=== PATIENT | female | born 1985 | race Caucasian/White ===

== ENCOUNTER 2016-03-06 09:46 | Emergency (ER) | payer OTHER ==
[~2016-03-06 09:46] MED LIST: ACET160S5 PO; COLA100C PO; IBUP800T23 PO; MOM30SS PO; OXYC1TAB23 PO; PRENTAB55 PO
--- NOTE | 2016-03-06 10:31 | EDDOCDS ---
Physician Documentation [facility] Name: Gisela Mansfield Age: 31 yrs Sex: Female : 1985 Arrival Date: 03/06/2016 Time: 09:46 Bed I7 / 29 Private MD: César Bourne FPA Disposition: 03/06/16 10:18 Discharged to Home/Self Care. Impression: Puncture wound without foreign body of left index finger without damage to nail, Contact with and (suspected) exposure to potentially hazardous body fluids. - Condition is Stable. - Discharge Instructions: Body Fluid Exposure Information. - Medication Reconciliation form. - Follow up: Employee Health Office, .; When: 1 week; Reason: Recheck today's complaints, Continuance of care. - Problem is new. - Symptoms are unchanged. Historical: - Allergies: no known allergies; - Home Meds: 1. none - PMHx: Anxiety; - PSHx: ; - Social history: Smoking status: Patient states former smoker of tobacco. No barriers to communication noted, The patient speaks fluent Luxembourger, Speaks appropriately for age. - Family history: Not pertinent. - : The pt / caregiver states he / she is not on anticoagulants. Home medication list is obtained from the patient. - Exposure Risk Screening:: None identified. 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 7 in. (170.18 cm); Pain 0/10; 09:48 Body Mass Index 20.36 (58.97 kg, 170.18 cm) cmb MDM: 10:04 Financial registration complete. lg 10:08 Consult [employer] (-F, 7:30a-4p) or Nursing [employer] Principal for source patient cc10 testing ordered. 10:08 Place PEP packet on chart ordered. cc10 10:09 CBC with Diff Ordered. EDMS 10:09 Complete Comphrensive Metabolic Ordered. EDMS 10:09 HIV EXPOSED(ONLY WITH PEP SET) Ordered. EDMS 10:09 Hepatitis B Surface Antibody Ordered. EDMS 10:09 Hepatitis B Surface Antigen Ordered. EDMS 10:26 Consult Employee Health (M-F, 7:30a-4p) or Nursing [employer] for source patient srm testing complete. Signatures: Dispatcher [employer] EDSo Han, RN RN srm Aleja Montgomery Reg Reg lg Barney, Michael B RN RN mlb1 Kalia Varghese, JEANNETTE PAGregorio cc10 The chart was reviewed and I authenticate all verbal orders and agree with the evaluation and treatment provided.Corrections: (The following items were deleted from the chart) 10:28 10:09 HEPATITIS C ANTIBODY+LAB ordered. EDMS EDMS MTDD
--- NOTE | 2016-03-06 10:31 | EDDOCDS ---
Nurse's Notes [facility] Name: Gisela Mansfield Age: 31 yrs Sex: Female : 1985 Arrival Date: 03/06/2016 Time: 09:46 Bed I7 / 29 Private MD: César Bourne FPA Diagnosis: Puncture wound without foreign body of left index finger without damage to nail;Contact with and (suspected) exposure to potentially hazardous body fluids Presentation: 03/06 09:50 Presenting complaint: Patient states: Puncture wound with a towel clip in the OR. Adult mlb1 Sepsis Screening: The patient does not have new or worsening altered mentation. Patient's respiratory rate is less than 22. Systolic blood pressure is greater than 100. Patient has a qSOFA score of 0- Negative Sepsis Screen. Suicide/Homicide risk assessment- the patient denies having any suicidal and/or homicidal ideations and does not present with any other emotional, behavioral or mental health complaints. Status: Patient is not a service vehicle operator or dependent. Transition of care: patient was not received from another setting of care. 09:50 Acuity: MIGUEL Level 4 mlb1 09:50 Method Of Arrival: Walkin/Carried/Asstd mlb1 Triage Assessment: 09:52 General: Appears in no apparent distress, comfortable, Behavior is appropriate for age, mlb1 cooperative. Pain: Denies pain. Pt Declines HIV testing. 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 none - PMHx: Anxiety; - PSHx: ; - Social history: Smoking status: Patient states former smoker of tobacco. No barriers to communication noted, The patient speaks fluent Macedonian, Speaks appropriately for age. - Family history: Not pertinent. - : The pt / caregiver states he / she is not on anticoagulants. Home medication list is obtained from the patient. - Exposure Risk Screening:: None identified. Screenin:26 Screening information is obtained from the patient. Fall risk: No risks identified. srm Assistance ADL's: requires no assistance with activities of daily living. Abuse/DV Screen: The patient / caregiver reports he/she is: not in a situation that causes fear, pain or injury. Nutritional screening: No deficits noted. Advance Directives: There is no active DNR order. home support is adequate. Assessment: 10:26 General: Appears in no apparent distress, Behavior is appropriate for age, cooperative. srm Neurological: No deficits noted. EENT: No deficits noted. Respiratory: No deficits noted. GI: No deficits noted. Derm: Reports poked in left index finger by a towel clip. Employee health called and notified that she is Neg Hep B from last year and they have name and SOB of source pt but no other information. PA aware. Injury: 10:29 Injury Description: Needlestick Type of exposure: Surgical instrument. Site: left index.srm Vital Signs: 09:48 BP 121 / 71; Pulse 98; Resp 16; Temp 97.8(O); Pulse Ox 97% ; Weight 58.97 kg; Height 5 cmb ft. 7 in. (170.18 cm); Pain 0/10; 09:48 Body Mass Index 20.36 (58.97 kg, 170.18 cm) cmb Vitals: 09:48 Log In Time: March 06, 2016 at 09:46. cmb ED Course: 09:47 Patient visited by Julia Cody. cmb 09:47 Patient moved to Waiting cmb 09:48 César Bourne is Private Physician. cmb 09:49 Patient moved to Pre RCE cmb 09:50 Patient visited by César Kelly, RN. mlb1 09:50 Patient moved to Triage 3 mlb1 09:51 Triage Initiated mlb1 09:53 Patient visited by César Kelly, RN. mlb1 10:01 Kalia Varghese PA-C is PHCP. cc10 10:01 Kip Pablo MD is Attending Physician. cc10 10:01 Patient visited by Kalia Varghese PA-C. cc10 10:01 Patient visited by Kalia Varghese PA-C. cc10 10:15 Patient moved to dy 10:18 Employee [facility] Office, . is Referral Physician. cc10 10:26 The patient / caregiver is instructed regarding the plan of care and ED course. Patient srm has correct armband on for positive identification. 10:26 CBC with Diff Sent. srm 10:26 Complete Comphrensive Metabolic Sent. srm 10:26 HIV EXPOSED(ONLY WITH PEP SET) Sent. srm 10:26 Hepatitis B Surface Antibody Sent. srm 10:26 Hepatitis B Surface Antigen Sent. srm 10:26 No IV's were initiated during this patient's visit. No procedures done that require srm assistance. Order Results: There are currently no results for this order. Outcome: 10:18 Discharge ordered by Provider. cc10 10:26 Discharge Assessment: patient administered narcotics - no. The following High Risk srm Discharge criteria are identified: None. Discharged to home ambulatory. The following High Risk Discharge criteria are identified: Discharged to pt states was going to employee health after leaving ED. Condition: good Condition: stable. Discharge instructions given to patient, Instructed on discharge instructions, follow up and referral plans. Demonstrated understanding of instructions, Pt was receptive of discharge instructions/ teaching. No special radiology studies were completed. Property sent home with patient. 10:30 Patient left the ED. srm Signatures: So Lepe, RN RN Walter Lowery, RN RN César Jefferson RN RN mlJulia Leos Colin, PA-C PA-C cc10 Corrections: (The following items were deleted from the chart) 10:28 10:26 HEPATITIS C ANTIBODY+LAB sent. srm EDMS MTDD
[2016-03-06 10:39] LABS: BASO % 0.6 % (0.0-1.0); EOS # 0.2 K/mm3 (0.0-0.50); EOS % 2.5 % (0.0-3.0); LARGE UNSTAINED CELL # 0.2 K/mm3 (0.0-0.4); LYMPH # 2.1 K/mm3 (1.5-4.5); LYMPH % 33.6 % (24.0-44.0); MEAN CORPUSCULAR HGB CONC 32.8 g/dl (32.0-36.5); MEAN CORPUSCULAR VOLUME 85.3 fl (80.0-96.0); MONO # 0.3 K/mm3 (0.0-0.8); MONO % 5.3 % (0.0-5.0); NEUTROPHILS # 3.4 K/mm3 (1.8-7.7); PLATELET COUNT, AUTOMATED 351 k/mm3 (150-450); RED CELL DISTRIBUTION WIDTH 13.7 % (11.5-14.5); WHITE BLOOD COUNT 6.2 K/mm3 (4.0-10.0)
[2016-03-06 11:04] LABS: ALBUMIN 3.9 GM/DL (3.2-5.2); ALBUMIN/GLOBULIN RATIO 1.05 (1.00-1.93); ALKALINE PHOSPHATASE 40 U/L (45-117); ALT/SGPT 21 U/L (12-78); ANION GAP 7 MEQ/L (8-16); AST/SGOT 14 U/L (15-37); BILIRUBIN,TOTAL 0.5 MG/DL (0.2-1.0); BLOOD UREA NITROGEN 14 MG/DL (7-18); CALCIUM LEVEL 8.6 MG/DL (8.5-10.1); CARBON DIOXIDE LEVEL 27 MEQ/L (21-32); CHLORIDE LEVEL 106 MEQ/L (98-107); GLOMERULAR FILTRATION RATE > 60.0 (>60); GLUCOSE, FASTING 101 MG/DL (70-105); POTASSIUM SERUM 4.2 MEQ/L (3.5-5.1); SODIUM LEVEL 140 MEQ/L (136-145); TOTAL PROTEIN 7.6 GM/DL (6.4-8.2)
[2016-03-06 11:09] LABS: CONTROL LINE INT CTR LINE PRESENT
[2016-03-06 11:23] LABS: HEPATITIS B SURFACE ANTIBODY NEGATIVE (POSITIVE)
--- NOTE | 2016-03-08 11:31 | EDDOCDS ---
Nurse's Notes [facility] Name: Gisela Mansfield Age: 31 yrs Sex: Female : 1985 Arrival Date: 03/06/2016 Time: 09:46 Bed I7 / 29 Private MD: César Bourne FPA Diagnosis: Puncture wound without foreign body of left index finger without damage to nail;Contact with and (suspected) exposure to potentially hazardous body fluids Presentation: 03/06 09:50 Presenting complaint: Patient states: Puncture wound with a towel clip in the OR. Adult mlb1 Sepsis Screening: The patient does not have new or worsening altered mentation. Patient's respiratory rate is less than 22. Systolic blood pressure is greater than 100. Patient has a qSOFA score of 0- Negative Sepsis Screen. Suicide/Homicide risk assessment- the patient denies having any suicidal and/or homicidal ideations and does not present with any other emotional, behavioral or mental health complaints. Status: Patient is not a social worker health services or dependent. Transition of care: patient was not received from another setting of care. 09:50 Acuity: MIGUEL Level 4 mlb1 09:50 Method Of Arrival: Walkin/Carried/Asstd mlb1 Triage Assessment: 09:52 General: Appears in no apparent distress, comfortable, Behavior is appropriate for age, mlb1 cooperative. Pain: Denies pain. Pt Declines HIV testing. 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 none - PMHx: Anxiety; - PSHx: ; - Social history: Smoking status: Patient states former smoker of tobacco. No barriers to communication noted, The patient speaks fluent Lithuanian, Speaks appropriately for age. - Family history: Not pertinent. - : The pt / caregiver states he / she is not on anticoagulants. Home medication list is obtained from the patient. - Exposure Risk Screening:: None identified. Screenin:26 Screening information is obtained from the patient. Fall risk: No risks identified. srm Assistance ADL's: requires no assistance with activities of daily living. Abuse/DV Screen: The patient / caregiver reports he/she is: not in a situation that causes fear, pain or injury. Nutritional screening: No deficits noted. Advance Directives: There is no active DNR order. home support is adequate. Assessment: 10:26 General: Appears in no apparent distress, Behavior is appropriate for age, cooperative. srm Neurological: No deficits noted. EENT: No deficits noted. Respiratory: No deficits noted. GI: No deficits noted. Derm: Reports poked in left index finger by a towel clip. Employee health called and notified that she is Neg Hep B from last year and they have name and SOB of source pt but no other information. PA aware. Injury: 10:29 Injury Description: Needlestick Type of exposure: Surgical instrument. Site: left index.srm Vital Signs: 09:48 BP 121 / 71; Pulse 98; Resp 16; Temp 97.8(O); Pulse Ox 97% ; Weight 58.97 kg; Height 5 cmb ft. 7 in. (170.18 cm); Pain 0/10; 09:48 Body Mass Index 20.36 (58.97 kg, 170.18 cm) cmb Vitals: 09:48 Log In Time: March 06, 2016 at 09:46. cmb ED Course: 09:47 Patient visited by Julia Cody. cmb 09:47 Patient moved to Waiting cmb 09:48 César Bourne is Private Physician. cmb 09:49 Patient moved to Pre RCE cmb 09:50 Patient visited by César Kelly, RN. mlb1 09:50 Patient moved to Triage 3 mlb1 09:51 Triage Initiated mlb1 09:53 Patient visited by César Kelly, RN. mlb1 10:01 Kalia Varghese PA-C is PHCP. cc10 10:01 Kip Pablo MD is Attending Physician. cc10 10:01 Patient visited by Kalia Varghese PA-C. cc10 10:01 Patient visited by Kalia Varghese PA-C. cc10 10:15 Patient moved to dy 10:18 Employee [facility] Office, . is Referral Physician. cc10 10:26 The patient / caregiver is instructed regarding the plan of care and ED course. Patient srm has correct armband on for positive identification. 10:26 CBC with Diff Sent. srm 10:26 Complete Comphrensive Metabolic Sent. srm 10:26 HIV EXPOSED(ONLY WITH PEP SET) Sent. srm 10:26 Hepatitis B Surface Antibody Sent. srm 10:26 Hepatitis B Surface Antigen Sent. srm 10:26 No IV's were initiated during this patient's visit. No procedures done that require srm assistance. 10:34 [facility] Payment Agreement was scanned into [employer] and attached to record. lg 13:50 T-Sheet-- Draft Copy was scanned into [employer] and attached to record. gb 13:50 Other: PEP was scanned into [employer] and attached to record. gb Order Results: Lab Order: CBC with Diff; SPEC'M 03/06/16 10:23 Test: WHITE BLOOD COUNT; Value: 6.2; Range: 4.0-10.0; Units: K/mm3; Status: F Test: RED BLOOD COUNT; Value: 4.68; Range: 4.00-5.40; Units: M/mm3; Status: F Test: HEMOGLOBIN; Value: 13.1; Range: 12.0-16.0; Units: g/dl; Status: F Test: HEMATOCRIT; Value: 39.9; Range: 36.0-47.0; Units: %; Status: F Test: MEAN CORPUSCULAR VOLUME; Value: 85.3; Range: 80.0-96.0; Units: fl; Status: F Test: MEAN CORPUSCULAR HEMOGLOBIN; Value: 28.0; Range: 27.0-33.0; Units: pg; Status: F Test: MEAN CORPUSCULAR HGB CONC; Value: 32.8; Range: 32.0-36.5; Units: g/dl; Status: F Test: RED CELL DISTRIBUTION WIDTH; Value: 13.7; Range: 11.5-14.5; Units: %; Status: F Test: PLATELET COUNT, AUTOMATED; Value: 351; Range: 150-450; Units: k/mm3; Status: F Test: NEUTROPHILS %; Value: 55.0; Range: 36.0-66.0; Units: %; Status: F Test: LYMPH %; Value: 33.6; Range: 24.0-44.0; Units: %; Status: F Test: MONO %; Value: 5.3; Range: 0.0-5.0; Abnormal: Above high normal; Units: %; Status: F Test: EOS %; Value: 2.5; Range: 0.0-3.0; Units: %; Status: F Test: BASO %; Value: 0.6; Range: 0.0-1.0; Units: %; Status: F Test: LARGE UNSTAINED CELL %; Value: 3.0; Range: 0.0-4.0; Units: %; Status: F Test: NEUTROPHILS #; Value: 3.4; Range: 1.8-7.7; Units: K/mm3; Status: F Test: LYMPH #; Value: 2.1; Range: 1.5-4.5; Units: K/mm3; Status: F Test: MONO #; Value: 0.3; Range: 0.0-0.8; Units: K/mm3; Status: F Test: EOS #; Value: 0.2; Range: 0.0-0.50; Units: K/mm3; Status: F Test: BASO #; Value: 0.0; Range: 0.0-0.2; Units: K/mm3; Status: F Test: LARGE UNSTAINED CELL #; Value: 0.2; Range: 0.0-0.4; Units: K/mm3; Status: F Lab Order: Complete Comphrensive Metabolic; SPEC'M 03/06/16 10:23 Test: GLUCOSE, FASTING; Value: 101; Range: 70-105; Units: MG/DL; Status: F Test: BLOOD UREA NITROGEN; Value: 14; Range: 7-18; Units: MG/DL; Status: F Test: CREATININE FOR GFR; Value: 1.00; Range: 0.55-1.02; Units: MG/DL; Status: F Test: GLOMERULAR FILTRATION RATE; Value: > 60.0; Range: >60; Status: F Test: SODIUM LEVEL; Value: 140; Range: 136-145; Units: MEQ/L; Status: F Test: POTASSIUM SERUM; Value: 4.2; Range: 3.5-5.1; Units: MEQ/L; Status: F Test: CHLORIDE LEVEL; Value: 106; Range: 98-107; Units: MEQ/L; Status: F Test: CARBON DIOXIDE LEVEL; Value: 27; Range: 21-32; Units: MEQ/L; Status: F Test: ANION GAP; Value: 7; Range: 8-16; Abnormal: Below low normal; Units: MEQ/L; Status: F Test: CALCIUM LEVEL; Value: 8.6; Range: 8.5-10.1; Units: MG/DL; Status: F Test: AST/SGOT; Value: 14; Range: 15-37; Abnormal: Below low normal; Units: U/L; Status: F Test: ALT/SGPT; Value: 21; Range: 12-78; Units: U/L; Status: F Test: ALKALINE PHOSPHATASE; Value: 40; Range: 45-117; Abnormal: Below low normal; Units: U/L; Status: F Test: BILIRUBIN,TOTAL; Value: 0.5; Range: 0.2-1.0; Units: MG/DL; Status: F Test: TOTAL PROTEIN; Value: 7.6; Range: 6.4-8.2; Units: GM/DL; Status: F Test: ALBUMIN; Value: 3.9; Range: 3.2-5.2; Units: GM/DL; Status: F Test: ALBUMIN/GLOBULIN RATIO; Value: 1.05; Range: 1.00-1.93; Status: F Test Note: ; Units are mL/min/1.73 m2 Chronic Kidney Disease Staging per NKF: Stage I & II GFR >=60 Normal to Mildly Decreased Stage III GFR 30-59 Moderately Decreased Stage IV GFR 15-29 Severely Decreased Stage V GFR <15 Very Little GFR Left ESRD GFR <15 on EMBEDDED SOFTWARE TEST ENGINEER Lab Order: HIV EXPOSED(ONLY WITH PEP SET); SPEC' 03/06/16 10 Test: HIVEXPOSED0; Value: NEGATIVE; Range: NEGATIVE; Status: F Test: HIV EXPOSED PT 1; Value: NEGATIVE; Range: NEGATIVE; Status: F Test Note: ; This test was performed utilizing a immunochromatographic sandwich principle technique. Sensitivity of the assay is 100%. Specificity of the assay is 99.7%. Lab Order: Hepatitis B Surface Antibody; SPEC'M 03/06/16 10: Test: HEPATITIS B SURFACE ANTIBODY; Value: NEGATIVE; Range: POSITIVE; Status: F Lab Order: Hepatitis B Surface Antigen; SPEC' 03/06/16 10: Test: HEPATITIS B SURFACE ANTIGEN; Value: NEGATIVE; Range: NEGATIVE; Status: F Lab Order: HEPATITIS C ANTIBODY; SPEC' 03/06/16 10:23 Test: HEPATITIS C VIRUS TAPAN INDEX; Value: < 0.0; Range: <0.8; Units: INDEX; Status: F Outcome: 10:18 Discharge ordered by Provider. cc10 10:26 Discharge Assessment: patient administered narcotics - no. The following High Risk [facility] Discharge criteria are identified: None. Discharged to home ambulatory. The following High Risk Discharge criteria are identified: Discharged to pt states was going to employee health after leaving ED. Condition: good Condition: stable. Discharge instructions given to patient, Instructed on discharge instructions, follow up and referral plans. Demonstrated understanding of instructions, Pt was receptive of discharge instructions/ teaching. No special radiology studies were completed. Property sent home with patient. 10:30 Patient left the ED. srm Signatures: So Lepe, RN RN srm Freda Washburn, Reg Reg gb Aleja Montgomery, Reg Reg lg Walter Ware, RN RN César Jefferson RN RN mlJulia Leos Colin, PACalinC PA-C cc10 Corrections: (The following items were deleted from the chart) 10:28 10:26 HEPATITIS C ANTIBODY+LAB sent. srm EDMS Chart Complete MTDD
--- NOTE | 2016-03-08 11:31 | EDDOCDS ---
Physician Documentation [facility] Name: Gisela Mansfield Age: 31 yrs Sex: Female : 1985 Arrival Date: 03/06/2016 Time: 09:46 Bed I7 / 29 Private MD: César Bourne FPA Disposition: 03/06/16 10:18 Discharged to Home/Self Care. Impression: Puncture wound without foreign body of left index finger without damage to nail, Contact with and (suspected) exposure to potentially hazardous body fluids. - Condition is Stable. - Discharge Instructions: Body Fluid Exposure Information. - Medication Reconciliation form. - Follow up: Employee Health Office, .; When: 1 week; Reason: Recheck today's complaints, Continuance of care. - Problem is new. - Symptoms are unchanged. Historical: - Allergies: no known allergies; - Home Meds: 1. none - PMHx: Anxiety; - PSHx: ; - Social history: Smoking status: Patient states former smoker of tobacco. No barriers to communication noted, The patient speaks fluent Stateless, Speaks appropriately for age. - Family history: Not pertinent. - : The pt / caregiver states he / she is not on anticoagulants. Home medication list is obtained from the patient. - Exposure Risk Screening:: None identified. 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 7 in. (170.18 cm); Pain 0/10; 09:48 Body Mass Index 20.36 (58.97 kg, 170.18 cm) cmb MDM: 10:04 Financial registration complete. lg 10:08 Consult [employer] (-F, 7:30a-4p) or Nursing Production Machine Operator for source patient cc10 testing ordered. 10:08 Place PEP packet on chart ordered. cc10 10:09 CBC with Diff Ordered. EDMS 10:09 Complete Comphrensive Metabolic Ordered. EDMS 10:09 HIV EXPOSED(ONLY WITH PEP SET) Ordered. EDMS 10:09 Hepatitis B Surface Antibody Ordered. EDMS 10:09 Hepatitis B Surface Antigen Ordered. EDMS 10:26 Consult Employee Health (M-F, 7:30a-4p) or Nursing Production Machine Operator for source patient srm testing complete. 10:31 HEPATITIS C ANTIBODY Ordered. EDMS 10:34 [facility] Payment Agreement was scanned into [employer] and attached to record. lg 13:50 T-Sheet-- Draft Copy was scanned into [employer] and attached to record. gb 13:50 Other: PEP was scanned into [employer] and attached to record. gb Signatures: Dispatcher [employer] EDMS So Lepe, RN RN srm Freda Washburn, Reg Reg gb Aleja Montgomery, Reg Reg lg César Kelly RN RN mlb1 Kalia Varghese, PACalinC PA-C cc10 The chart was reviewed and I authenticate all verbal orders and agree with the evaluation and treatment provided.Corrections: (The following items were deleted from the chart) 10:28 10:09 HEPATITIS C ANTIBODY+LAB ordered. EDMS EDMS Attachments: 10:34 [facility] [place] Agreement lg 13:50 T-Sheet-- Draft Copy gb Chart Complete MTDD
--- NOTE | 2016-03-08 11:31 | EDDOCDS ---
Physician Documentation [facility] Name: Gisela Mansfield Age: 31 yrs Sex: Female : 1985 Arrival Date: 03/06/2016 Time: 09:46 Bed I7 / 29 Private MD: César Bourne FPA Disposition: 03/06/16 10:18 Discharged to Home/Self Care. Impression: Puncture wound without foreign body of left index finger without damage to nail, Contact with and (suspected) exposure to potentially hazardous body fluids. - Condition is Stable. - Discharge Instructions: Body Fluid Exposure Information. - Medication Reconciliation form. - Follow up: Employee Health Office, .; When: 1 week; Reason: Recheck today's complaints, Continuance of care. - Problem is new. - Symptoms are unchanged. Historical: - Allergies: no known allergies; - Home Meds: 1. none - PMHx: Anxiety; - PSHx: ; - Social history: Smoking status: Patient states former smoker of tobacco. No barriers to communication noted, The patient speaks fluent Sierra Leonean, Speaks appropriately for age. - Family history: Not pertinent. - : The pt / caregiver states he / she is not on anticoagulants. Home medication list is obtained from the patient. - Exposure Risk Screening:: None identified. 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 7 in. (170.18 cm); Pain 0/10; 09:48 Body Mass Index 20.36 (58.97 kg, 170.18 cm) cmb MDM: 10:04 Financial registration complete. lg 10:08 Consult [employer] (-F, 7:30a-4p) or Nursing Director Staffing for source patient cc10 testing ordered. 10:08 Place PEP packet on chart ordered. cc10 10:09 CBC with Diff Ordered. EDMS 10:09 Complete Comphrensive Metabolic Ordered. EDMS 10:09 HIV EXPOSED(ONLY WITH PEP SET) Ordered. EDMS 10:09 Hepatitis B Surface Antibody Ordered. EDMS 10:09 Hepatitis B Surface Antigen Ordered. EDMS 10:26 Consult Employee Health (M-F, 7:30a-4p) or Nursing Director Staffing for source patient srm testing complete. 10:31 HEPATITIS C ANTIBODY Ordered. EDMS 10:34 [facility] Payment Agreement was scanned into [employer] and attached to record. lg 13:50 T-Sheet-- Draft Copy was scanned into [employer] and attached to record. gb 13:50 Other: PEP was scanned into [employer] and attached to record. gb Signatures: Dispatcher [employer] EDMS So Lepe, RN RN srm Freda Washburn, Reg Reg gb Aleja Montgomery, Reg Reg lg César Kelly RN RN mlb1 Kalia Varghese, PACalinC PA-C cc10 The chart was reviewed and I authenticate all verbal orders and agree with the evaluation and treatment provided.Corrections: (The following items were deleted from the chart) 10:28 10:09 HEPATITIS C ANTIBODY+LAB ordered. EDMS EDMS Attachments: 10:34 [facility] Payment Agreement lg 13:50 T-Sheet-- Draft Copy gb Chart Complete MTDD
== END 2016-03-06 10:30 | disposition home or self-care (01) ==
LOC: M ED 09:46
DX: S61.231A Puncture wound without foreign body of left index finger without damage to nail, initial encounter (principal); W26.9XXA Contact with unspecified sharp object(s), initial encounter; Y92.238 Other place in hospital as the place of occurrence of the external cause; Y93.89 Activity, other specified; Y99.0 Civilian activity done for income or pay; F41.9 Anxiety disorder, unspecified; Z87.891 Personal history of nicotine dependence

== ENCOUNTER → 2017-12-27 | Outpatient (REF) | payer BC | LOC: M SFHCLERA 16:29 | DX: J02.9 Acute pharyngitis, unspecified (principal) ==

== ENCOUNTER → 2018-12-14 | Outpatient (REF) | payer BC ==
[~2018-12-14] MED LIST changes: -ACET160S5 PO; -COLA100C PO; +COLA100C5 PO; +IBUP1TAB7 PO; -IBUP800T23 PO; +TGTSUS3 PO
== END ==
LOC: M SFHCLERA 17:17
PROVIDERS: ATTEND Nurse Practitioner Family
DX: J02.9 Acute pharyngitis, unspecified (principal)

== ENCOUNTER → 2019-03-01 | Outpatient (CLI) | payer BC, OTHER ==
--- NOTE | 2019-03-01 18:27 | REP ---
CHEST: Two views. There is no evidence of acute infiltrate. No pleural effusion is seen. The heart is normal in size. The mediastinal silhouette is unremarkable. The visualized osseous structures are intact. IMPRESSION: No acute pulmonary disease. Electronically Signed by Tony Ring MD 03/01/2019 07:37 P
== END ==
LOC: M LRY 17:27
PROVIDERS: ATTEND Physician Assistant
DX: R05 Cough (principal)

== ENCOUNTER 2023-07-03 19:03 | Emergency (ER) | payer OTHER, SELFPAY ==
[~2023-07-03] VITALS: Ht 170.2 cm; Wt 62.7 kg
[~2023-07-03 19:03] MED LIST changes: +ACET-1439 PO; -TGTSUS3 PO
[2023-07-03] MEDS ORDERED: PROZ40CA PO (19:31)
[2023-07-03 20:55] LABS: BASO # 0.1 10^3/uL (0.0-0.2); BASO % 0.8 % (0.0-1.0); EOS # 0.2 10^3/uL (0.0-0.5); EOS % 2.4 % (0.0-3.0); HEMATOCRIT 34.7 % (36.0-47.0); LYMPH # 1.6 10^3/uL (1.5-5.0); LYMPH % 21.8 % (24.0-44.0); MEAN CORPUSCULAR HEMOGLOBIN 23.5 pg (27.0-33.0); MEAN CORPUSCULAR HGB CONC 31.7 g/dl (32.0-36.5); MEAN CORPUSCULAR VOLUME 74.1 fl (80.0-96.0); MONO # 0.5 10^3/uL (0.0-0.8); MONO % 6.8 % (2.0-8.0); NEUTROPHILS % 67.9 % (36.0-66.0); PLATELET COUNT, AUTOMATED 369 10^3/uL (150-450); RED BLOOD COUNT 4.68 10^6/uL (4.00-5.40); WHITE BLOOD COUNT 7.4 10^3/uL (4.0-10.0)
[2023-07-03] MEDS: ONDANSETRON 4MG 2ML VIAL IV ONE (21:16)
[2023-07-03] MEDS: KETOROLAC 30 MG/ML 1ML VIAL IV ONE (21:16)
[2023-07-03 21:17] LABS: CK-MB VALUE MASS < 1.0 NG/ML (<3.6); LIPASE 33 U/L (12-53)
[2023-07-03] MEDS: NS 1,000 ML IV ONE (21:17)
[2023-07-03 21:19] LABS: ALBUMIN 3.5 G/DL (3.2-5.2); ALKALINE PHOSPHATASE 30 U/L (46-116); ALT/SGPT 14 U/L (7.0-40); AST/SGOT 14 U/L (<34); BILIRUBIN,DIRECT 0.2 MG/DL (<0.4); BILIRUBIN,TOTAL 0.4 MG/DL (0.3-1.2); BLOOD UREA NITROGEN 14 MG/DL (9-23); CARBON DIOXIDE LEVEL 25 MMOL/L (20-31); CHLORIDE LEVEL 109 MMOL/L (98-107); CPK CREATINE PHOSPHOKINASE 71 U/L (34-145); CREATININE FOR GFR 0.92 MG/DL (0.55-1.30); GLOMERULAR FILTRATION RATE > 60.0 (>60); GLUCOSE, FASTING 91 MG/DL (60-100); POTASSIUM SERUM 3.9 MMOL/L (3.5-5.1); SODIUM LEVEL 140 MMOL/L (136-145); TOTAL PROTEIN 6.5 G/DL (5.7-8.2)
[2023-07-03 21:23] LABS: MONO SCRN NEGATIVE (NEGATIVE)
[2023-07-03] MEDS ORDERED: ISOVUE-370 76% 100ML VIAL As Ordered ONE (21:38)
[2023-07-03] MEDS: GASTROGRAFIN SOLUTION 30ML PO SCH (21:52)
[2023-07-03 22:04] LABS: Trichomonas vaginalis (AMP) NOT DETECTED (NEGATIVE)
[2023-07-03 22:27] LABS: GC DNA AMPLIFICATION NEGATIVE (NEGATIVE)
[2023-07-04] MEDS ORDERED: KETO10TAB PO (01:34)
[2023-07-04 01:41] VITALS: BP 106/52; TEMP 97; O2SAT 99
== END 2023-07-04 01:43 | disposition home or self-care (01) ==
LOC: M ED 19:03 → EDBD 19:03 → M ED 07-04 01:43
DX: R16.2 Hepatomegaly with splenomegaly, not elsewhere classified (principal); F32.A Depression, unspecified; F41.1 Generalized anxiety disorder; Z79.1 Long term (current) use of non-steroidal anti-inflammatories (NSAID); Z79.899 Other long term (current) drug therapy
CPT/HCPCS: 74177; 80048; 80076; 81001; 82550; 82553; 83605; 83690; 84484; 84702; 85025; 86308; 87661; 87810; 87850; 93005; 93041; 96361; 96374; 99285; J1885; J2405; Q9963; Q9967

== ENCOUNTER 2023-08-26 10:17 | Emergency (ER) | payer OTHER ==
[~2023-08-26] VITALS: Ht 170.2 cm; Wt 62.4 kg
[~2023-08-26 10:17] MED LIST changes: +KETO10TAB PO; +PROZ40CA PO
[2023-08-26 11:10] LABS: BASO # 0.1 10^3/uL (0.0-0.2); BASO % 0.9 % (0.0-1.0); EOS # 0.1 10^3/uL (0.0-0.5); EOS % 1.9 % (0.0-3.0); HEMATOCRIT 40.6 % (36.0-47.0); LYMPH # 1.4 10^3/uL (1.5-5.0); MEAN CORPUSCULAR HEMOGLOBIN 25.9 pg (27.0-33.0); MEAN CORPUSCULAR VOLUME 80.9 fl (80.0-96.0); MONO # 0.4 10^3/uL (0.0-0.8); MONO % 6.3 % (2.0-8.0); NEUTROPHILS # 4.5 10^3/uL (1.5-8.5); NEUTROPHILS % 69.7 % (36.0-66.0); PLATELET COUNT, AUTOMATED 359 10^3/uL (150-450); RED BLOOD COUNT 5.02 10^6/uL (4.00-5.40); WHITE BLOOD COUNT 6.5 10^3/uL (4.0-10.0)
[2023-08-26 11:44] LABS: LIPASE 30 U/L (12-53)
[2023-08-26 11:46] LABS: ALBUMIN 4.2 G/DL (3.2-5.2); ALKALINE PHOSPHATASE 38 U/L (46-116); ALT/SGPT 22 U/L (7.0-40); AST/SGOT 14 U/L (<34); BILIRUBIN,DIRECT 0.2 MG/DL (<0.4); BILIRUBIN,TOTAL 0.5 MG/DL (0.3-1.2); BLOOD UREA NITROGEN 12 MG/DL (9-23); CALCIUM LEVEL 9.4 MG/DL (8.5-10.1); CARBON DIOXIDE LEVEL 28 MMOL/L (20-31); CHLORIDE LEVEL 105 MMOL/L (98-107); GLOMERULAR FILTRATION RATE > 60.0 (>60); GLUCOSE, FASTING 85 MG/DL (60-100); POTASSIUM SERUM 4.4 MMOL/L (3.5-5.1); SODIUM LEVEL 137 MMOL/L (136-145); TOTAL PROTEIN 6.9 G/DL (5.7-8.2)
[2023-08-26] MEDS ORDERED: TRAM50TA2 PO (15:47)
[2023-08-26] MEDS ORDERED: OMEP-173 PO (15:47)
[2023-08-26 16:01] VITALS: BP 113/81; TEMP 96.7; O2SAT 100
== END 2023-08-26 16:09 | disposition home or self-care (01) ==
LOC: M ED 10:17
DX: R10.812 Left upper quadrant abdominal tenderness (principal); R16.2 Hepatomegaly with splenomegaly, not elsewhere classified; R14.0 Abdominal distension (gaseous); R00.1 Bradycardia, unspecified; F17.200 Nicotine dependence, unspecified, uncomplicated; Z79.899 Other long term (current) drug therapy

== ENCOUNTER → 2023-10-09 | Outpatient (CLI) | payer OTHER ==
[~2023-10-09] MED LIST changes: +OMEP-173 PO; +TRAM50TA2 PO
[2023-10-09 13:11] LABS: LDH LACTATE DEHYDROGENASE 150 U/L (120-246)
[2023-10-09 13:41] LABS: HIV 1&2 SCREEN NEGATIVE (NEGATIVE)
[2023-10-10 08:11] LABS: TOXOPLASMA IgG ABY 12.4 IU/mL (0.0-7.1)
[2023-10-13 16:27] LABS: ANA PATTERN Nuclear, Homogeneous (NEGATIVE); ANA SCREEN, IFA POSITIVE (NEGATIVE)
[2023-10-14 16:58] LABS: LYME TOTAL ANTIBODY CIA <= 0.90 Index (<=0.90)
== END ==
LOC: M PLALAB 11:28
PROVIDERS: ATTEND Internal Medicine Infectious Disease
DX: R16.2 Hepatomegaly with splenomegaly, not elsewhere classified (principal)